=== PATIENT | female | born 1965 | race Caucasian/White ===

== ENCOUNTER → 2021-05-08 | Outpatient (CLI) | payer SELFPAY ==
[2021-05-08 11:10] VITALS: BP 174/83
--- NOTE | 2021-05-08 12:31 | Cardiology Stress Test Report ---
Stress Test Report Date of Procedure/Referring: Date of Procedure: May 08, 2021 PCP Gladys Davis MD Admitting Physician Indications: CP Baseline Heart Rate: 80 Baseline Blood Pressure: Blood Pressure Systolic: 174 Blood Pressure Diastolic: 83 Baseline EKG: Baseline EKG: NSR Summary/Conclusion: Summary: In summary, the patient started exercising with a baseline heart rate, blood pressure and EKG mentioned above Patient was able to exercise for a total of 3 minutes on Eleazar protocol, METs 4.6 Maximum heart rate 151 Maximum blood pressure 213/105 Stress EKG, Minimal nondiagnostic changes Recovery EKG , Return to baseline Conclusion: 1. Fair exercise tolerance for a total of 3 minutes on Eleazar protocol, 4.6 METs, achieving 91 percent of maximum expected heart rate 2. Minimal nondiagnostic EKG changes with exercise with artifacts returned to baseline during recovery 3. No arrhythmia was noted 4. Baseline hypertension with blood pressure 174/83 with severe hypertensive response to exercise with peak blood pressure 213/105 return to baseline during recovery Copy Copies To 1: GLADYS DAVIS MD, BASHAR J MD May 08, 2021 12:31
== END ==
LOC: CARD 10:30
PROVIDERS: ATTEND Family Medicine
DX: R07.89 Other chest pain (principal)
CPT/HCPCS: 93017